=== PATIENT | male | born 1955 | race Caucasian/White ===

== ENCOUNTER 2021-01-12 16:18 | Emergency (ER) | payer OTHER ==
[~2021-01-12] VITALS: Ht 182.9 cm; Wt 85.0 kg
[2021-01-12] MEDS ORDERED: CLARITIN10 M2 PO (16:45)
[2021-01-12] MEDS ORDERED: MOTRIN400 MG/TAB PO (16:46)
[2021-01-12] MEDS ORDERED: VENTOLIN HF1 IN (16:47)
[2021-01-12] MEDS ORDERED: [UNRECOGNIZED DRUG - OTHER] (16:48)
[2021-01-12] MEDS ORDERED: MINERAL SC (16:48)
[2021-01-12 17:02] LABS: HEMATOCRIT 41.7 % (39.0-50.0); HEMOGLOBIN 13.3 g/dl (14.0-18.0); IMMATURE GRANULOCYTES 0.5 % (0.0-5.0); MEAN CELL VOLUME 93.9 fL CALC (80.0-100.0); MEAN CORPUSCULAR HGB CONC 31.9 g/dL CAL (32.0-36.0); NEUT# 12.4 thou/uL (1.82-7.42); RED BLOOD COUNT 4.44 mill/uL (4.70-6.10)
[2021-01-12 17:14] LABS: ALBUMIN 4.1 g/dL (3.2-5.0); ALKALINE PHOSPHATASE 412 u/l (38-126); ANION GAP 11 (6-22 (CALC)); BILIRUBIN, TOTAL 3.1 mg/dL (0.0-1.4); BUN 16 mg/dL (8-23); BUN/CREATININE RATIO 16 (12-20 (CALC)); CARBON DIOXIDE 28 mmol/l (22-30); CHLORIDE 100 mmol/l (95-108); GFR > 60 ML/MIN (>=60 (CALC)); GFR FOR AFR.AMER. > 60 ML/MIN (>=60 (CALC)); POTASSIUM 4.3 mmol/l (3.5-5.1); SGOT/AST 246 u/l (19-48); SODIUM 136 mmol/l (137-146); TOTAL PROTEIN 7.6 g/dL (6.3-8.2)
[2021-01-12 17:49] LABS: LIPASE 59635 u/l (23-300)
[2021-01-12 20:20] VITALS: BP 129/73
--- NOTE | 2021-01-15 07:43 | NUR ---
Attempts to call blood culture results to [facility] were unsuccessful, both the pocket operator and ED were unable to retrieve patient info. Results were called to nurse Bustamante at the [facility], 2 vials in one set growing Strep Mitis. 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 faxed to [phone]
--- NOTE | 2021-01-18 07:40 | NUR ---
FINAL BLOOD CX RESULTS CALLED TO MARGARITA @ [facility], FAXED TO [phone]
== END 2021-01-12 20:20 | disposition short-term general hospital (02) | DRG 439 ==
LOC: ED 16:18
PROVIDERS: Family Medicine
DX: K85.90 Acute pancreatitis without necrosis or infection, unspecified (principal); K80.00 Calculus of gallbladder with acute cholecystitis without obstruction; R74.01 Elevation of levels of liver transaminase levels; J44.9 Chronic obstructive pulmonary disease, unspecified; K21.9 Gastro-esophageal reflux disease without esophagitis
CPT/HCPCS: Q9967

== ENCOUNTER 2022-10-10 07:42 | Day surgery (SDC) | payer OTHER ==
[~2022-10-10] VITALS: Ht 182.9 cm; Wt 98.0 kg
[~2022-10-10 07:42] MED LIST: ACID REFLUX MED; ADVAIR DISK1 INH; CLARITIN10 M2 PO; MINERAL SC; MOTRIN400 MG/TAB PO; NAPROXEN PO; VENTOLIN HF1 IN; [UNRECOGNIZED DRUG - OTHER]
[2022-10-10] MEDS ORDERED: PRILOSEC20 MG/CAP PO (07:55)
[2022-10-10 09:26] VITALS: BP 129/76
== END 2022-10-10 11:00 | disposition designated cancer center or children's hospital (05) | DRG 951 ==
LOC: ENDO 07:42 → ORM 08:45 → ENDO 08:45
PROVIDERS: ATTEND Surgery
PROC: 0DJD8ZZ Inspection of Lower Intestinal Tract, Via Natural or Artificial Opening Endoscopic (ICD-10-PCS; principal; 2022-10-10)
DX: Z12.11 Encounter for screening for malignant neoplasm of colon (principal); K57.30 Diverticulosis of large intestine without perforation or abscess without bleeding; K64.8 Other hemorrhoids; Z86.010 Personal history of colon polyps